=== PATIENT | male | born 1950 | race Caucasian/White ===

== ENCOUNTER 2019-11-15 18:35 | Observation (INO) | payer MEDICARE, SELFPAY ==
--- NOTE | ~2019-11-15 | XR_ITS ---
EXAMINATION: XR chest 2V EXAM DATE: 11/15/2019 19:12 INDICATION: Chest tightness, shortness of breath today well working outside. TECHNIQUE: Frontal and lateral projections of the chest obtained and reviewed. There is no prior milvia dy for comparison. FINDINGS: The lungs are clear. There are no pleural effusions. The cardiomediastinal silhouette is within normal limits. There is no pneumothorax suspected. The bones and soft tissues are unremarkab le. IMPRESSION: Unremarkable chest x-ray exam. Reviewed, dictated and finalized at location A.
--- NOTE | ~2019-11-15 | NM_ITS ---
EXAMINATION: NM vik stress w perfusion DATE: 11/16/2019 15:21 INDICATION: Chest pain TECHNIQUE: Rest images were obtained following intravenous administration of 9.441 mCi Tc99m tetrofos min (Myoview). The patient was infused intravenously with Lexiscan (Regadenoson). Then, a 9.3 mCi Tc9 9m tetrofosmin (Myoview) was administered intravenously, and stress images were obtained. Data was re constructed into short axis and horizontal and vertical long axis SPECT images. Gated SPECT images we re also obtained. COMPARISON: None. FINDINGS: There is no definite reversible or fixed perfusion abnormality to suggest ischemia or infar ction. There is normal left ventricular chamber size, wall motion and ejection fraction. Left ventr icular ejection fraction measures >70%. IMPRESSION: 1. Normal myocardial perfusion at rest and during stress. 2. Left ventricular ejection fraction measuring >70%. Reviewed, dictated and finalized at location A.
--- NOTE | 2019-11-15 18:40 | ECG_ITS ---
Measurements Intervals [place] Rate: 70 P: 34 KS: 140 QRS: 2 QRSD: 95 T: 40 QT: 376 QTc: 407 Interpretive Statements SINUS RHYTHM POSSIBLE LEFT ATRIAL ENLARGEMENT BASELINE ARTIFACT- I, II, V3-V4 BORDERLINE ECG Electronically Signed On 11-16-2019 7:11:22 CDT by Cruzito Simms D.O.
[2019-11-15 18:41] VITALS: BP 133/82; PULSE 75; RESP 21; TEMP 36.7; O2SAT 98
[2019-11-15 18:49] VITALS: PULSE 74
--- NOTE | 2019-11-15 18:58 | PC.NURSE ---
per pt gave me excedrin with tylenol and aspirin in it before coming here.
[2019-11-15 19:04] LABS: Basophils Absolute Auto 0.1 K/mm3 (0.0-0.1); Basophils Percent Auto 0.7 % (0.2-1.2); Eosinophils Absolute Auto 0.1 K/mm3 (0-0.3); Eosinophils Percent Auto 0.7 % (0-4.4); Hematocrit 45.8 % (42.0-52.0); Hemoglobin 15.7 g/dL (14.0-18.0); Immature Granulocyte Absolute 0.06 K/mm3 (0.00-0.031); Immature Granulocyte Percent A 0.6 % (0-0.5); Lymphocytes Absolute Auto 1.72 K/mm3 (0.9-3.2); Mean Corpuscular HGB Conc 34.3 g/dl (32-36); Mean Corpuscular Hemoglobin 31.4 pg (26-34); Mean Corpuscular Volume 91.6 fl (80-100); Mean Platelet Volume 8.9 fl (7.4-10.4); Monocytes Percent Auto 9.5 % (2.6-8.5); Neutrophils Absolute Auto 7.8 K/mm3 (1.3-6.7); Neutrophils Percent Auto 72.5 % (45.5-73.1); Platelet Count Result 357 k/mm3 (150-375); Red Cell Distribution Width 13.1 % (11.5-14.5); White Blood Count 10.8 K/mm3 (4.5-10.0)
[2019-11-15 19:15] LABS: Blood Urea Nitrogen 47 mg/dL (9-20); Calcium 9.9 mg/dL (8.4-10.2); Carbon Dioxide 18 mmol/L (22-30); Chloride 102 mmol/L (98-107); Estimated CRCL calculation 21 ml/min; Estimated Glomerular Filt Rate 24; Glucose 113 mg/dL (75-110); Potassium 4.7 mmol/L (3.4-5.0); Sodium 133 mmol/L (137-145)
[2019-11-15 19:27] LABS: Troponin I 0.021 ng/mL (0.000-0.034)
[2019-11-15 19:39] LABS: Partial Thromboplastin Time 23.5 SECONDS (22.3-36.8)
--- NOTE | 2019-11-15 19:46 | ED.CHESTPAIN ---
HPI - Chest Pain General Chief Complaint: Chest Pain Stated Complaint: chest pain while working outside Time Seen by Provider: 11/15/19 18:39 Source: patient and family Mode of arrival: ambulatory Limitations: no limitations History of Present Illness HPI narrative: 69-year-old man in good health presenting for evaluation of chest discomfort He was working outside building a [employer] with his body and around 4:00 he experienced an episode of tightness that went from right to left across his upper anterior chest and he sat down and rested and it went away. The entire episode lasted about 20 minutes. He says that he was already sweaty was not short of breath or nauseated and did not have any palpitations or lightheadedness. He is never had a similar symptom before and has not had any symptoms since that time this afternoon. Spoke to his primary doctor who advised ER evaluation MD complaint: chest pain Related Data Home Medications Medication Instructions Recorded Confirmed aspirin 81 mg PO DAILY 11/15/19 fish aza-ohgpb-8-vit C-vit E g PO 11/15/19 milk thistle 500 mg PO DAILY 11/15/19 niacin 1,000 mg PO HS 11/15/19 Allergies Allergy/AdvReac Type Severity Reaction Status Date / Time [place]-Gzg-Pww Reductase Allergy Unknown muscle Verified 11/15/19 18:51 Inhibitor aches Review of Systems Review of Systems: All systems reviewed & are unremarkable except as noted in HPI and below Constitutional: Constitutional: Denies chills, Denies fatigue, Denies fever(s), Denies headache(s) and Denies night sweats Eyes: Eyes: Denies change in vision, Denies loss of vision and Denies other visual disturbances ENT: Denies headache(s), Denies hoarseness, Denies epistaxis, Denies nasal congestion and Denies sore throat Cardiovascular: Cardiovascular: Denies chest pain, Denies leg edema, Denies palpitations and Denies dyspnea Respiratory: Respiratory: Denies cough, Denies dyspnea and Denies wheezing Gastrointestinal: Gastrointestinal: Denies abdominal pain, Denies diarrhea, Denies nausea and Denies vomiting Genitourinary: Genitourinary: Denies hematuria, Denies dysuria and Denies urinary frequency Musculoskeletal: Musculoskeletal: Denies abnormal gait, Denies deformity, Denies joint swelling, Denies muscle weakness and Denies numbness Integumentary/Breasts: Skin/Breast: Denies rash, Denies unusual bruising and Denies wounds Neurologic: Denies abnormal gait, Denies headache(s), Denies focal weakness, Denies loss of vision and Denies numbness Psychiatric: Psychiatric: Reports no additional psychiatric complaints Endocrine: Endocrine: Denies fatigue and Denies palpitations Hematologic/Lymphatic: Hematologic/Lymphatic: Denies easy bleeding and Denies easy bruising Allergic/Immunologic: Allergic/Immunologic: Denies wheezing PMFSH Family History Family History (Updated 03/23/16 @ 16:38 by DOCTOR UNKNOWN) Mother Family history of elevated blood lipids Family history of Alzheimer's disease Father Family history of malignant neoplasm Sibling Family history of malignant melanoma Social History Social History Alcohol intake: current Gender identity (if verbalized by the patient): Male Sexual Orientation (if Verbalized by the Patient): Straight or Heterosexual Exam Const: General: healthy appearing, no acute distress and well developed Nutritional Appearance: well nourished Orientation/consciousness: patient oriented x3 (alert) and Other orientation findings (Alert) Limitations: no limitations HENMT: Head: normocephalic and atraumatic Ears: external ears normal General nose exam: No nasal discharge present and no epistaxis Face and sinus: face symmetric Mouth: Yes lip normal, Yes tongue normal and Yes moist mucous membranes Throat: other (No exudate, no erythema) Eyes: Conjunctivae: conjunctivae normal Sclera: sclerae normal EOM: EOMs intact bilaterally Neck: Neck: full ROM, no lymphadenopathy and sup
[2019-11-15 20:35] VITALS: BP 120/64; PULSE 66; RESP 17; TEMP 36.6; O2SAT 98
[2019-11-15] MEDS: LACTATED RINGERS 1,000 ML 150 ML IV CONT (20:35)
[2019-11-15 22:02] LABS: Troponin I 0.014 ng/mL (0.000-0.034)
[2019-11-15 22:03] LABS: Creatine Kinase 782 U/L (55-170)
[2019-11-15 22:14] VITALS: BP 132/67; PULSE 64; RESP 18; TEMP 36.6; O2SAT 97
--- NOTE | 2019-11-15 22:37 | ADMGEN ---
This patient, Brody Hedrick, was admitted to IMU Room 211-01. Patient/family oriented to hospital policies and general routines including ID bracelet, bed and alarms, visiting hours, pain management, procedures, bathroom and other care routines, personal items, smoking policy, room service/diet, and visiting hours. Valuables list has been completed. Information on how to activate the Rapid Response Team has been discussed. Patient/Family are encouraged to report perceived risks to care and to ask questions if they do not understand what they are told or what they should do.
[2019-11-15 22:38] VITALS: BMI 24.7
[2019-11-15 22:47] VITALS: PULSE 67
--- NOTE | 2019-11-15 22:47 | PM.IMHP ---
H&P: HPI History of Present Illness Chief complaint: norman, chest pain Narrative: This is a pleasant 69 year old male with known history of hyperlipidemia who presented to the hospital with a complaint of 20 minutes of midsternal chest discomfort that occurred today while he was working outside on a deck. The patient denies any radiation of his chest pain and associated symptoms included diaphoresis and shortness of breath. His chest pain resolved with rest. He called his PCP who recommended he come and get checked out at the hospital. He denies any fevers, chills, cough, recent shortness of breath, sore throat, abdominal pain, nausea, vomiting, diarrhea, dysuria, hematuria, rectal bleeding or leg swelling. The patient has no previous history of heart disease and has never had a heart cath before. In the ER tonight the patient was found to have an elevated Cr level and has no previous history of renal disease. Cardiology has been consulted by ER provider and has asked that we admit the patient to the hospital for cardiac rule out and they will evaluate him in the morning. He denies any other significant symptoms. Review of Systems Review of Systems: All systems reviewed & are unremarkable except as noted in HPI and below PMFSH Past Medical History Medical History Hyperlipidemia Family History Family History Mother Family history of elevated blood lipids Family history of Alzheimer's disease Father Family history of malignant neoplasm Sibling Family history of malignant melanoma Social History Social History Smoking status: Current every day smoker Tobacco type: cigars Alcohol intake: current Drinks per week: 5 Substance use: never Gender identity (if verbalized by the patient): Male Sexual Orientation (if Verbalized by the Patient): Straight or Heterosexual Spiritual care concerns: No Comments surgical history reviewed and noncontributory Meds Home Medications and Allergies Home Medications Medication Instructions Recorded Confirmed Type aspirin 81 mg PO DAILY 11/15/19 11/15/19 History fish grf-waqzt-9-vit C-vit E See Rx Instructions .ROUTE .COMPLEX 11/15/19 11/15/19 History losartan-hydrochlorothiazide 1 tablet PO QAM 11/15/19 11/15/19 History milk thistle 500 mg PO DAILY 11/15/19 11/15/19 History niacin 1,000 mg PO QAM 11/15/19 11/15/19 History esuod-fzftgvxly-xibdrga-water 0.03 ml INTRA-CAVERNOSAL DAILY PRN 11/16/19 11/16/19 History Allergies Allergy/AdvReac Type Severity Reaction Status Date / Time [place]-Zae-Myt Reductase Allergy Unknown muscle Verified 11/15/19 18:51 Inhibitor aches Vital Signs Vital Signs - 24 hr 11/15/19 18:41 11/15/19 18:49 11/15/19 20:35 Temperature 36.7 C 36.6 C Pulse Rate 75 74 66 Respiratory Rate 21 H 17 Blood Pressure 133/82 120/64 Pulse Oximetry 98 98 11/15/19 22:14 Temperature 36.6 C Pulse Rate 64 Respiratory Rate 18 Blood Pressure 132/67 Pulse Oximetry 97 Exam Const: General: cooperative, healthy appearing, no acute distress, alert and awake Nutritional Appearance: well nourished Orientation/consciousness: patient oriented x3 HENMT: Head: normal to inspection General nose exam: Normal external nose present Face and sinus: normal facial exam Mouth: Yes Normal oral and palatal mucosa present and Yes oropharynx normal Eyes: Pupils: Equal, round and reactive pupils present EOM: EOMs intact bilaterally Neck: Neck: supple and no JVD Thyroid: thyroid normal Lymphatic: lymphadenopathy not noted Resp: Effort & Inspection: normal respiratory effort Auscultation: clear to auscultation bilaterally Cardio: Rate: regular rate Rhythm: regular rhythm Heart sounds: no murmurs GI: Inspection: normal to inspection Auscultation: normal bowel sounds Skin: General s
[2019-11-15 23:25] VITALS: BP 141/75; PULSE 71; RESP 20; TEMP 36.1; O2SAT 20
[2019-11-16] VITALS (13 sets, daily range): BP systolic 115–130; BP diastolic 53–62; PULSE 52–78; RESP 16–18; TEMP 36.3–36.8; O2SAT 98–99
--- NOTE | 2019-11-16 | EST_ITS ---
Patient Info Name: Brody Hedrick Age: 69 years : 1950 Gender: Male Ht: 66 in Wt: 150 lbs BSA: 1.79 m2 Heart Rhythm: Sinus Rhythm Exam Date: 11/16/2019 2:02 PM Exam Location: [facility] Stress Patient Status: Inpatient Admit Date: 11/15/2019 Staff Ordering Physician: Chaparro Payne MD Attending Provider: Simon Leroy MD Nurse: Mignon Bowman, ANP, ACNP-BC Exam Type: CA stress vik w NM Study Info Indications R07.9 - Chest pain, unspecified A regadenoson stress test was performed. Summary 1. No abnormal ST-T wave changes with lexiscan. 2. Please correlate with nuclear medicine images, reported separately. Protocol: Lexiscan Stress ECG Details Stage: REST Duration (min): 0 min : 48 sec HR (bpm): 51 SBP (mmHg): 127 DBP (mmHg): 62 Stage: REST Duration (min): 2 min : 44 sec HR (bpm): 57 SBP (mmHg): 127 DBP (mmHg): 62 Stage: STAGE 1 Duration (min): 0 min : 59 sec HR (bpm): 81 SBP (mmHg): 144 DBP (mmHg): 61 Stage: RECOVERY Duration (min): 1 min : 0 sec HR (bpm): 88 SBP (mmHg): 128 DBP (mmHg): 65 Stage: RECOVERY Duration (min): 2 min : 0 sec HR (bpm): 80 SBP (mmHg): 128 DBP (mmHg): 65 Stage: RECOVERY Duration (min): 3 min : 0 sec HR (bpm): 78 SBP (mmHg): 127 DBP (mmHg): 59 Stage: RECOVERY Duration (min): 3 min : 3 sec HR (bpm): 78 SBP (mmHg): 127 DBP (mmHg): 59 Rest HR: 57 bpm Peak HR: 93 bpm Rest Sys BP: 127 mmHg Peak Sys BP: 144 mmHg Max Pred HR: 151 bpm % Max Pred HR: 62 % Target HR: 128 bpm Max RPP: 13,392 bpm*mmHg BP Response: Normal blood pressure response Termination Reason: Completed protocol Cardiac Symptoms: None Total Time: 1 min : 0 sec Rest Hack[place] BP: 62 mmHg Peak [place] BP: 61 mmHg Total Dose: 0.4 mg Resting ECG Normal sinus rhythm - normal ECG. Stress ECG No abnormal ST/T wave changes with exercise. Arrhythmias None. Report Signatures
[2019-11-16 01:28] LABS: Troponin I 0.012 ng/mL (0.000-0.034)
[2019-11-16] MEDS: LACTATED RINGERS 1,000 ML 125 ML IV CONT ×2 (03:46→10:44)
[2019-11-16 05:32] LABS: Cholesterol 188 mg/dL (0-200); HDL Direct 51 mg/dL; Triglycerides 73 mg/dL (<150)
[2019-11-16 05:35] LABS: Blood Urea Nitrogen 42 mg/dL (9-20); Calcium 8.5 mg/dL (8.4-10.2); Carbon Dioxide 24 mmol/L (22-30); Chloride 101 mmol/L (98-107); Estimated CRCL calculation 38 ml/min; Estimated Glomerular Filt Rate 46; Glucose 85 mg/dL (75-110); Potassium 3.4 mmol/L (3.4-5.0); Sodium 131 mmol/L (137-145)
[2019-11-16 05:43] LABS: LDL Cholesterol Direct 118 mg/dL
[2019-11-16] MEDS: LOSARTAN POTASSIUM 100 MG TABLET PO (08:09)
[2019-11-16] MEDS: hydroCHLOROthiazide 12.5 MG CAPSULE PO (08:09)
[2019-11-16] MEDS: ASPIRIN 81 MG CHEWABLE TABLET PO (08:09)
--- NOTE | 2019-11-16 09:40 | PM.CNCAR ---
Assessment and Plan Assessment and plan (1) Benign essential hypertension: Code(s): I10 - Essential (primary) hypertension Status: Acute Assessment and Plan: Continue losartan. Recommended against hydrochlorothiazide because of acute kidney injury and dehydration. Start amlodipine 5 mg daily. (2) Chest pain: Qualifiers: Chest pain type: unspecified Qualified Code(s): R07.9 - Chest pain, unspecified Code(s): R07.9 - Chest pain, unspecified Status: Acute Assessment and Plan: Will arrange for exercise nuclear test to assess.. (3) Acute kidney injury: Code(s): N17.9 - Acute kidney failure, unspecified Status: Acute Assessment and Plan: Likely secondary to hydrochlorothiazide combination with him working outside in hot environment. (4) On manager intermediate drug therapy: Code(s): Z79.899 - Other residential (current) drug therapy Status: Acute History of Present Illness History of Present Illness Consult date/time: Date of service 11/16/19 09:40 This 69-year-old patient with past medical history of hypertension , drinks few beers every day, occasional cigar smoking who apparently has been working outside in the heat for the last couple weeks and yesterday while working out distal to have central chest discomfort. He thought he was dehydrated. Denies shortness of breath, lower limb edema, orthopnea, paroxysmal nocturnal dyspnea. Chest pain felt like heaviness with no radiation nurse for about 15 minutes with no aggravating or relieving factors. White count 10 0.8 kg, creatinine on admission was 2.8 and today is 1.5, troponins x2 negative. Chest x-ray reviewed myself looks unremarkable. EKG reviewed myself shows normal sinus rhythm, left atrial enlargement, cannot exclude old inferior TN. Requesting physician: Simon Leroy MD Reason For Visit: norman, chest pain Review of Systems Constitutional: Constitutional: Denies chills, Denies fever(s) and Denies poor appetite Eyes: Eyes: Denies eye discharge, Denies loss of vision, Denies eye pain and Denies photophobia ENT: Denies dizziness, Denies epistaxis, Denies nasal congestion and Denies sore throat Cardiovascular: Cardiovascular: Reports chest pain, Denies syncope, Denies pedal edema, Denies leg edema, Denies palpitations, Denies dyspnea, Denies dyspnea on exertion and Denies orthopnea Respiratory: Respiratory: Denies cough, Denies dyspnea, Denies dyspnea on exertion and Denies wheezing Gastrointestinal: Gastrointestinal: Denies abdominal pain, Denies diarrhea, Denies nausea and Denies vomiting Genitourinary: Genitourinary: Denies hematuria, Denies genital lesions and Denies dysuria Musculoskeletal: Musculoskeletal: Denies arthralgias, Denies joint swelling and Denies numbness Integumentary/Breasts: Skin/Breast: Denies pruritus and Denies rash Neurologic: Denies dizziness, Denies syncope, Denies loss of vision and Denies numbness Psychiatric: Psychiatric: Denies anxiety and Denies depression Endocrine: Endocrine: Denies cold intolerance, Denies heat intolerance and Denies palpitations Hematologic/Lymphatic: Hematologic/Lymphatic: Denies easy bleeding and Denies easy bruising Allergic/Immunologic: Allergic/Immunologic: Denies urticaria and Denies wheezing PMFSH Past Medical History Medical History Hyperlipidemia Family History Family History Mother Family history of elevated blood lipids Family history of Alzheimer's disease Father Family history of malignant neoplasm Sibling Family history of malignant melanoma Social History Social History Smoking status: Current every day smoker Tobacco type: cigars Alcohol intake: current Drinks per week: 5 Substance use: never Gender identity (if verbalized by the patient): Mal
--- NOTE | 2019-11-16 14:34 | PM.IMPN ---
Progress Note: A&P Assessment and Plan (1) Chest pain: Qualifiers: Chest pain type: unspecified Qualified Code(s): R07.9 - Chest pain, unspecified Code(s): R07.9 - Chest pain, unspecified Status: Acute Assessment and Plan: Pt is due to have stress test today seen by cardiology. Hopeful discharge tomorrow (2) Acute kidney injury: Code(s): N17.9 - Acute kidney failure, unspecified Status: Acute Assessment and Plan: May be secondary to dehydration from working outside today. Continue iv fluids, Creat is 1.5. (3) Hyperlipidemia: Qualifiers: Hyperlipidemia type: unspecified Qualified Code(s): E78.5 - Hyperlipidemia, unspecified Code(s): E78.5 - Hyperlipidemia, unspecified Status: Chronic Assessment and Plan: Check lipid panel in am. Subjective Date/time seen: 11/16/19 14:34 Interval history: 69 year old male with known history of hyperlipidemia who presented to the hospital with a complaint of 20 minutes of midsternal chest discomfort that occurred today while he was working outside on a deck. Pt was working outside, has not been eating and drinking much. Pt is due to have stress test today under cardiology no known cardiac problems. Chest pain has resolved. Review of Systems Review of Systems: All systems reviewed & are unremarkable except as noted in HPI and below Cardiovascular: Cardiovascular: Denies chest pain Comments: Chest tightness yesterday Exam Const: General: cooperative, healthy appearing, no acute distress, alert and awake Nutritional Appearance: well nourished Orientation/consciousness: patient oriented x3 Resp: Effort & Inspection: normal respiratory effort Auscultation: clear to auscultation bilaterally Cardio: Rate: regular rate Rhythm: regular rhythm Heart sounds: no murmurs GI: Inspection: normal to inspection Auscultation: normal bowel sounds Neuro: General: patient oriented x3 Cranial nerves: Yes CN's II-XII intact bilaterally and Yes Equal, round and reactive pupils present Speech: normal speech Motor exam (neuro): 5/5 motor strength present throughout Sensory Exam: normal sensation Extrem: General: normal to inspection and no edema Psych: Mental Status: mental status grossly normal Affect: normal affect Objective Data Vital Signs Vital Signs: Vital Signs - 24 hr 11/15/19 18:41 11/15/19 18:49 11/15/19 20:35 Temperature 36.7 C 36.6 C Pulse Rate 75 74 66 Respiratory Rate 21 H 17 Blood Pressure 133/82 120/64 Pulse Oximetry 98 98 11/15/19 22:14 11/15/19 22:47 11/15/19 23:25 Temperature 36.6 C 36.1 C L Pulse Rate 64 67 71 Respiratory Rate 18 20 Blood Pressure 132/67 141/75 H Pulse Oximetry 97 20 L 11/16/19 00:00 11/16/19 02:00 11/16/19 04:00 Temperature Pulse Rate 78 67 59 L Respiratory Rate Blood Pressure Pulse Oximetry 11/16/19 04:03 11/16/19 06:00 11/16/19 07:59 Temperature 36.3 C L 36.4 C Pulse Rate 62 63 58 L Respiratory Rate 18 16 Blood Pressure 130/54 L 125/62 Pulse Oximetry 98 99 11/16/19 08:00 11/16/19 10:00 11/16/19 11:55 Temperature Pulse Rate 61 63 56 L Respiratory Rate 16 Blood Pressure Pulse Oximetry 99 11/16/19 12:00 11/16/19 13:57 Temperature 36.8 C Pulse Rate 63 61 Respiratory Rate 18 Blood Pressure 115/53 L Pulse Oximetry 99 Intake/Output Intake/Output: Intake & Output 11/13/19 11/14/19 11/15/19 11/16/19 23:59 23:59 23:59 23:59 Intake Total 2450 Output Total 850 Balance 1600 Meds/Results Medications: Active Medications Generic Name Dose Route Start Last Admin Trade Name Freq PRN Reason Stop Dose Admin Acetaminophen 650 mg 11/15/19 20:27 Tylenol Tablet PO Q4H PRN Mild Pain (1-3) or Fever Amlodipine Besylate 5 mg 11/17/19 09:00 Norvasc PO QAM [facility] Aspirin 81 mg 11/16/19 08:00 11/16/19 08:09 Aspirin Chewable PO 81 mg D
--- NOTE | 2019-11-16 15:49 | PM.CNNEP ---
Assessment and Plan Assessment and plan (1) Acute kidney injury: Code(s): N17.9 - Acute kidney failure, unspecified Status: Acute (2) Chest pain: Qualifiers: Chest pain type: unspecified Qualified Code(s): R07.9 - Chest pain, unspecified Code(s): R07.9 - Chest pain, unspecified Status: Acute (3) Benign essential hypertension: Code(s): I10 - Essential (primary) hypertension Status: Acute Assessment and Plan: . Additional Plan Brody had an episode of acute renal failure/acute kidney injury that appears to be already resolving as evidence by his labs this morning. From what he tells me, he was working outside on his deck for an extensive period of time. He is well aware of the fact that he ?sweats a lot? and feels that this is what occurred when he was working on his stack. Whether not the sweating played a role with regard to his chest pain is not clear but since he has a negative stress test, it would seem less likely that any cardiac event occurred when he had the a for mentioned chest pains in the 1st place. I suspect his acute kidney injury/acute renal failure is secondary to volume depletion/dehydration possibly worsened by the fact that he was taken an ARB and diuretics (hydrochlorothiazide). Since his kidney function has improved remarkably with aggressive IV fluid hydration, I suspect his kidney function will continue to improve with oral hydration as well. Hence, from my perspective, I believe it is safe for the patient to be discharged today with instructions to continue to push his fluid intake in the next few days to ventrally get his kidney function back to baseline. Cardiology is already changes medications so these no longer on the hydrochlorothiazide and will be using Amlodipine as a substitute which seems a reasonable course of action particularly given the events that led to his admission here. I do not think he needs any follow-up with me since his kidney function was normal at baseline and I suspect it will return to baseline with continued/ongoing supportive care. Thank you for allowing me to participate in the care of this patient. History of Present Illness Reason for Consult Consult date: 11/16/19 Reason for consult: acute renal failure Chief Complaint Chief complaint: norman, chest pain History of Present Illness Narrative: The patient is a 69 year old male with a past medical history as outlined below who presented to [facility] ER yesterday with complaints of chest pain. The patient was working outside on his deck when developed midsternal chest discomfort. The pain lasted about a total of 20 minutes. He denied any radiation and rest seemed cause his chest pain to improve. He reported no fevers, chills, cough, shortness of breath, abdominal pain, nausea, vomiting or any other systemic symptoms. He called his PCP after this occurred who recommended evaluation in the ER. Workup and evaluation in the emergency room demonstrated the patient to be hemodynamically stable and routine blood test did demonstrate an elevated creatinine above his normal baseline. Appropriate cardiac testing was done and cardiology was contacted consulted from the ER who recommended hospital admission to rule out a cardiac event and further testing. Since his admission, he has been seen by Cardiology and underwent a nuclear stress test which was negative. Furthermore, with IV fluid hydration overnight, his kidney function/creatinine has improved remarkably. Currently, at the time of my visit, he appears to be in no acute distress and is wondering if it is possible for him to go home later today. Review of Systems Review of Systems: Narrative: As per HPI. [facility] Family History Family History Mother Family history of elevated blood lipids Family history of Alzheimer's disease Father Family history of malignant
--- NOTE | 2019-11-16 16:56 | PM.DS ---
DS: Admitting Diagnosis Admitting Diagnosis Admitting Diagnosis: Chest pain, unspecified DS: Discharge Diagnosis Discharge Diagnosis (1) Chest pain: Qualifiers: Chest pain type: unspecified Qualified Code(s): R07.9 - Chest pain, unspecified Code(s): R07.9 - Chest pain, unspecified Status: Acute Assessment and Plan: Pt inpatient stress test was negative, chest pain atypical related to heat exhaustion (2) Acute kidney injury: Code(s): N17.9 - Acute kidney failure, unspecified Status: Acute Assessment and Plan: May be secondary to dehydration from working outside. Continue iv fluids, Creat is 1.5. Pt sable for discharge. IV fluids stopped, encouraged oral fluids and hydration when working outside. Follow with PCP (3) Hyperlipidemia: Qualifiers: Hyperlipidemia type: unspecified Qualified Code(s): E78.5 - Hyperlipidemia, unspecified Code(s): E78.5 - Hyperlipidemia, unspecified Status: Chronic Assessment and Plan: Lipid panel completed DS: Summary Time Spent with Patient Time attestation: Total time spent providing and/or coordinating discharge services:40 minutes on day of discharge Exam Narrative: Exam Narrative: Comfortable Resp: Effort & Inspection: normal respiratory effort Auscultation: clear to auscultation bilaterally Cardio: Rate: regular rate Rhythm: regular rhythm Heart sounds: no murmurs Neuro: General: patient oriented x3 Cranial nerves: Yes CN's II-XII intact bilaterally and Yes Equal, round and reactive pupils present Speech: normal speech Motor exam (neuro): 5/5 motor strength present throughout Sensory Exam: normal sensation Extrem: General: normal to inspection and no edema Psych: Mental Status: mental status grossly normal Affect: normal affect DS: Data Data Completed and Pending Labs on day of discharge: Labs from last 24 hours 11/16/19 11/16/19 11/16/19 04:53 04:53 00:32 WBC RBC Hgb Hct MCV MCH MCHC RDW Plt Count MPV Immature Gran % (Auto) Neut % (Auto) Lymph % (Auto) Whitman % (Auto) Eos % (Auto) Baso % (Auto) Lymph # (Auto) Whitman # (Auto) Eos # (Auto) Baso # (Auto) Abs Immat Gran (auto) Absolute Neuts (auto) Absolute Nucleated RBC Nucleated RBC % PT INR APTT Sodium 131 L Potassium 3.4 Chloride 101 Carbon Dioxide 24 BUN 42 H Creatinine 1.50 H Estim Creat Clear Calc 38 Estimated GFR 46 L Glucose 85 Calcium 8.5 Total Creatine Kinase Troponin I 0.012 Triglycerides 73 Cholesterol 188 LDL Cholesterol Direct 118 HDL Direct 51 11/15/19 11/15/19 11/15/19 21:33 21:33 19:21 WBC RBC Hgb Hct MCV MCH MCHC RDW Plt Count MPV Immature Gran % (Auto) Neut % (Auto) Lymph % (Auto) Whitman % (Auto) Eos % (Auto) Baso % (Auto) Lymph # (Auto) Whitman # (Auto) Eos # (Auto) Baso # (Auto) Abs Immat Gran (auto) Absolute Neuts (auto) Absolute Nucleated RBC Nucleated RBC % PT 13.0 INR 1.0 APTT 23.5 Sodium Potassium Chloride Carbon Dioxide BUN Creatinine Estim Creat Clear Calc Estimated GFR Glucose Calcium Total Creatine Kinase 782 H Troponin I 0.014 D Triglycerides Cholesterol LDL Cholesterol Direct HDL Direct 11/15/19 11/15/19 18:57 18:56 WBC 10.8 H RBC 5.00 Hgb 15.7 Hct 45.8 MCV 91.6 MCH 31.4 MCHC 34.3 RDW 13.1 Plt Count 357 MPV 8.9 Immature Gran % (Auto) 0.6 H Neut % (Auto) 72.5 Lymph % (Auto) 16.0 L Whitman % (Auto) 9.5 H Eos % (Auto) 0.7 Baso % (Auto) 0.7 Lymph # (Auto) 1.72 Whitman # (Auto) 1.0 H Eos # (Auto) 0.1 Baso # (Auto) 0.1 Abs Immat Gran (auto) 0.06 H Absolute Neuts (auto) 7.8 H Absolute Nucleated RBC 0.0 Nucleated RBC % 0.0 PT INR AP
== END 2019-11-16 18:10 | disposition home or self-care (01) ==
LOC: ANHED 20:32 → ANHIMU 21:42
PROVIDERS: Emergency Medicine; Admitting Provider Family Medicine; Emergency Provider Emergency Medicine; PCP Internal Medicine; Visit Provider Family Medicine
DX: R07.89 Other chest pain (principal); X30.XXXA Exposure to excessive natural heat, initial encounter; N17.9 Acute kidney failure, unspecified; I10 Essential (primary) hypertension; E78.5 Hyperlipidemia, unspecified; F17.290 Nicotine dependence, other tobacco product, uncomplicated; Z79.82 Long term (current) use of aspirin; Z79.899 Other long term (current) drug therapy
CPT/HCPCS: 36415; 71046; 78452; 80048; 80061; 82550; 84484; 85025; 85610; 85730; 93005; 93017; 96360; 96361; 99285; A9270; A9502; G0378; J2785; J7120

== ENCOUNTER → 2019-12-04 08:56 | Outpatient (REF) | payer MEDICARE, SELFPAY | LOC: ANHLAB 08:56 | PROVIDERS: PCP Internal Medicine; Visit Provider Nurse Practitioner | DX: D49.2 Neoplasm of unspecified behavior of bone, soft tissue, and skin (principal) | CPT/HCPCS: 88305 ==

== ENCOUNTER 2020-07-16 10:26 | Outpatient (CLI) | payer MEDICARE, SELFPAY ==
[2020-07-16 11:02] LABS: Anion Gap 3 mmol/L (8-16); Blood Urea Nitrogen 13 mg/dL (9-20); Calcium 9.3 mg/dL (8.4-10.2); Carbon Dioxide 31 mmol/L (22-30); Chloride 102 mmol/L (98-107); Estimated Glomerular Filt Rate > 60; Glucose 87 mg/dL (75-110); Potassium 4.5 mmol/L (3.4-5.0); Sodium 136 mmol/L (137-145)
[2020-07-16 11:29] LABS: Prostate Specific Antigen 0.8 ng/mL (< OR = 4.0)
== END 2020-07-16 10:27 | disposition home or self-care (01) ==
PROVIDERS: PCP Internal Medicine; Visit Provider Internal Medicine
DX: I10 Essential (primary) hypertension (principal); Z12.5 Encounter for screening for malignant neoplasm of prostate
CPT/HCPCS: 36415; 80048; 84153; G0103

== ENCOUNTER → 2020-08-27 09:44 | Outpatient (REF) | payer MEDICARE, SELFPAY | LOC: ANHLAB 09:44 | PROVIDERS: PCP Internal Medicine; Visit Provider Nurse Practitioner | DX: L57.0 Actinic keratosis (principal) | CPT/HCPCS: 88305 ==